=== PATIENT | female | born 1950 | race Caucasian/White ===

== ENCOUNTER 2018-05-03 06:47 | Day surgery (SDC) | payer MEDICARE, OTHER ==
[~2018-05-03 06:47] MED LIST: KETOROLAC TROMETHAMINE 0.45% 4 DROP/0.4 ML DROPERETTE OD PRN
[2018-05-03] MEDS: TETRACAINE HCL 0.5% OPH SOLN 4 ML OD PRN ×3 (07:05→07:49)
[2018-05-03] MEDS: CYCLOPENTOLATE 0.2%/PHENYLEPHRINE 1% OPH SOLN 2 ML OD PRN ×3 (07:06→07:28)
[2018-05-03] MEDS: BESIFLOXACIN HCL 0.6% OPH SUSP 5 ML BOTTLE OD PRN ×3 (07:06→08:10)
[2018-05-03] MEDS: TROPICAMIDE 1% OPH SOLN 3 ML OD PRN ×3 (07:06→07:28)
[2018-05-03] MEDS ORDERED: CHONDR SU A NA/HYALUR INTRAOC KIT (SURGICARE) ONE (07:09)
[2018-05-03] MEDS ORDERED: LIDOCAINE 1% INJ-PF (10 MG/ML) 30 ML SDV ONE (07:09)
[2018-05-03] MEDS ORDERED: EPINEPHRINE INJ/PF 1 MG/1 ML AMPULE ONE (07:09)
[2018-05-03] MEDS ORDERED: MIDAZOLAM 2 MG/2 ML INJ ONE (07:42)
--- NOTE | 2018-05-03 21:41 | [facility] OPERATIVE REPORT E ---
[facility] Operative Report NAME: ALIA WEN AGE: 68Y DATE OF SURGERY: 05/03/2018 ROOM: PREOPERATIVE DIAGNOSIS: CATARACT, RIGHT EYE. POSTOPERATIVE DIAGNOSIS: CATARACT, RIGHT EYE. OPERATION: Cataract extraction with insertion of an IOL of the right eye. SURGEON: MICHEAL GOMEZ M.D. ANESTHESIA: Topical. PROCEDURE: After obtaining appropriate consent, the patient's right eye was prepped and draped in sterile fashion as well as the surgeon in a sterile manner and cataract surgery was started. First a paracentesis blade was used to make a side-port incision. Viscoelastic was used to inflate the anterior chamber. Next a 2.4 mm incision was made with a 2.4 mm blade, clear corneal temporally. A continuous capsulorrhexis was made using a cystotome and Utrata forceps. Following this hydrodissection was carried out to make the lens fully loose and mobile and it was rotated 90 degrees. Following this, a mvwibu-jib-sltwuji technique was used to phacoemulsify the lens with a CDE of 6.12. The remaining cortex was removed with irrigation/aspiration. Provisc was instilled into the capsular bag to inflate the bag. A SN60WF, 17.5 diopter lens was placed. The remaining viscoelastic material was removed with irrigation/aspiration. Following this, the incision was found to be watertight. Besivance was instilled into the eye and a protective shield was placed over the eye. The patient returned to the postoperative recovery in stable condition. DICTATING PHYSICIAN: MICHEAL GOMEZ M.D. 5020M 2139 PHY#: [id number] ID: [id number] JOB#: [id number] ACCT: [id number] cc:MICHEAL GOMEZ M.D. >
--- NOTE | 2018-05-03 21:46 | [facility] DISCHARGE SUMMARY E ---
[facility] Discharge Summary NAME: ALIA WEN AGE: 68Y ADMITTED: 05/03/2018 DISCHARGED: 05/03/2018 HOSPITAL COURSE: This is a 68-year-old female who underwent cataract extraction of the right eye. DIAGNOSIS: CATARACT, RIGHT EYE. She underwent surgery because she was having difficulty seeing the TV and to do computer work. DISCHARGE INSTRUCTIONS: She should be on a regular diet. No bending at her waist, no heavy lifting. She should use her Besivance, Ilevro, and Durezol at 3 p.m. and 8 p.m. and sleep with a rigid shield. I will see her for her 1 day postoperative tomorrow. DICTATING PHYSICIAN: MICHEAL GOMEZ M.D. 5020M 2139 Y#: [id number] ID: [id number] JOB#: [id number] ACCT: [id number] cc:MICHEAL GOMEZ M.D. >
== END 2018-05-03 08:52 | disposition home or self-care (01) ==
LOC: SC 06:47
PROVIDERS: ATTEND Internal Medicine
DX: H25.13 Age-related nuclear cataract, bilateral (principal); H43.813 Vitreous degeneration, bilateral; I10 Essential (primary) hypertension; E78.00 Pure hypercholesterolemia, unspecified; Z88.0 Allergy status to penicillin; Z79.899 Other long term (current) drug therapy
CPT/HCPCS: 66984; V2632; J2250; J3490 ×3; A9270; J0171; 142

== ENCOUNTER 2018-05-24 08:58 | Day surgery (SDC) | payer MEDICARE ==
[~2018-05-24 08:58] MED LIST changes: -KETOROLAC TROMETHAMINE 0.45% 4 DROP/0.4 ML DROPERETTE OD PRN; +KETOROLAC TROMETHAMINE 0.45% 4 DROP/0.4 ML DROPERETTE OS PRN
[2018-05-24] MEDS ORDERED: MIDAZOLAM 2 MG/2 ML INJ ONE (09:14)
[2018-05-24] MEDS: TROPICAMIDE 1% OPH SOLN 3 ML OS PRN ×3 (09:37→10:03)
[2018-05-24] MEDS: CYCLOPENTOLATE 0.2%/PHENYLEPHRINE 1% OPH SOLN 2 ML OS PRN ×3 (09:37→10:03)
[2018-05-24] MEDS: BESIFLOXACIN HCL 0.6% OPH SUSP 5 ML BOTTLE OS PRN ×4 (09:38→10:52)
[2018-05-24] MEDS: TETRACAINE HCL 0.5% OPH SOLN 4 ML OS PRN ×5 (09:39→10:29)
[2018-05-24] MEDS: EPINEPHRINE INJ/PF 1 MG/1 ML AMPULE ONE ×2 (10:43)
[2018-05-24] MEDS: CHONDR SU A NA/HYALUR INTRAOC KIT (SURGICARE) ONE ×2 (10:43)
[2018-05-24] MEDS: LIDOCAINE 1% INJ-PF (10 MG/ML) 30 ML SDV ONE ×2 (10:43)
--- NOTE | 2018-05-24 18:52 | [facility] DISCHARGE SUMMARY E ---
[facility] Discharge Summary NAME: ALIA WEN AGE: 68Y ADMITTED: 05/24/2018 DISCHARGED: 05/24/2018 HOSPITAL COURSE: This is a 68-year-old female who underwent cataract extraction of the left eye. DIAGNOSIS: CATARACT, LEFT EYE. She underwent surgery because she was having difficulty seeing small print. DISCHARGE INSTRUCTIONS: She should be on a regular diet. No bending at her waist, no heavy lifting. She should use her Besivance, PROLENSA, and Durezol at 3 p.m. and 8 p.m. and sleep with a rigid shield. I will see her for her 1 day postoperative tomorrow. DICTATING PHYSICIAN: MICHEAL GOMEZ M.D. 5020M 1849 PHY#: [id number] ID: [id number] JOB#: [id number] ACCT: [id number] cc:MICHEAL GOMEZ M.D. >
--- NOTE | 2018-05-24 18:52 | [facility] OPERATIVE REPORT E ---
[facility] Operative Report NAME: ALIA WEN AGE: 68Y DATE OF SURGERY: 05/24/2018 ROOM: PREOPERATIVE DIAGNOSIS: CATARACT, LEFT EYE. POSTOPERATIVE DIAGNOSIS: CATARACT, LEFT EYE. OPERATION: Cataract extraction with insertion of an IOL of the left eye. SURGEON: MICHEAL GOMEZ M.D. ANESTHESIA: Topical. PROCEDURE: After obtaining appropriate consent, the patient's left eye was prepped and draped in sterile fashion as well as the surgeon in a sterile manner and cataract surgery was started. First a paracentesis blade was used to make a side-port incision. Viscoelastic was used to inflate the anterior chamber. Next a 2.4 mm incision was made with a 2.4 mm blade, clear corneal temporally. A continuous capsulorrhexis was made using a cystotome and Utrata forceps. Following this hydrodissection was carried out to make the lens fully loose and mobile and it was rotated 90 degrees. Following this, a swnvbg-rim-eiwuxac technique was used to phacoemulsify the lens with a CDE of 5.3. The remaining cortex was removed with irrigation/aspiration. Provisc was instilled into the capsular bag to inflate the bag. A SN60WF, 18.5 diopter lens was placed. The remaining viscoelastic material was removed with irrigation/aspiration. Following this, the incision was found to be watertight. Besivance was instilled into the eye and a protective shield was placed over the eye. The patient returned to the postoperative recovery in stable condition. DICTATING PHYSICIAN: MICHEAL GOMEZ M.D. 5020M 1847 PHY#: [id number] ID: [id number] JOB#: [id number] ACCT: [id number] cc:MICHEAL GOMEZ M.D. > MTDVannesa
== END 2018-05-24 11:50 | disposition home or self-care (01) ==
LOC: SC 08:58
PROVIDERS: ATTEND Internal Medicine
DX: H25.12 Age-related nuclear cataract, left eye (principal); Z96.1 Presence of intraocular lens; Z88.0 Allergy status to penicillin
CPT/HCPCS: 66984; V2632; J2250; J3490 ×3; A9270; J0171; 142